=== PATIENT | male | born 1970 | race Caucasian/White ===

== ENCOUNTER 2016-02-09 04:20 | Emergency (ER) | payer SELFPAY ==
[2016-02-09 04:30] VITALS: TEMP 98.6
--- NOTE | 2016-02-09 04:57 | EDPHY ---
H & P Stated Complaint: right thumb laceration Source: Patient - Personal History Current Tetanus Diphtheria and Acellular Pertussis (TDAP): Yes - Medical/Surgical History Hx Asthma: Yes Hx Chronic Respiratory Disease: No Hx Diabetes: Yes Hx Cardiac Disease: No Hx Renal Disease: No Hx Cirrhosis: No Hx Alcoholism: No Hx HIV/AIDS: No Hx Splenectomy or Spleen Trauma: No Other PMH: type 2 diabetic, asthma, arthritis - Social History Smoking Status: Former smoker HPI/ROS: HPI CHIEF COMPLAINT: Right thumb laceration HISTORY OF PRESENT ILLNESS: This patient very pleasant 45-year-old male denies any significant medical history or surgical history, does not take any daily medications he presents to the emergency room with a right thumb laceration. 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 The laceration involves the tip of his right thumb 3 cm. it does involve the nail. No nail bed involvement. He is right-hand dominant, he is neurovascular intact no other injuries. Past Medical History: No significant medical history Past Surgical History: No significant surgical Social History: Denies daily use of drugs alcohol tobacco products Family History: noncontributory ROS REVIEW OF SYSTEMS: A comprehensive 10 point review of systems is otherwise negative aside from elements mentioned in the history of present illness. Exam Constitutional triage nursing summary reviewed, vital signs reviewed, awake/ alert. Eyes normal conjunctivae and sclera, EOMI, PERRLA. HENT normal inspection, atraumatic, moist mucus membranes, no epistaxis, neck supple/ no meningismus, no raccoon eyes. Respiratory clear to auscultation bilaterally, normal breath sounds, no respiratory distress, no wheezing. Cardiovascular rate normal, regular rhythm, no murmur, no edema, distal pulses normal. Gastrointestinal soft, non-tender, no rebound, no guarding, normal bowel sounds, no distension, no pulsatile mass. Genitourinary no CVA tenderness. Musculoskeletal right hand: Right thumb: Distal aspect laceration present 3-4 cm that involves the distal tuft of the right thumb, and now no midline vertebral tenderness, full range of motion, no calf swelling, no tenderness of extremities, no meningismus, good pulses, neurovascularly intact. Skin pink, warm, & dry, no rash, skin atraumatic. Neurologic awake, alert and oriented x 3, AAOx3, moves all 4 extremities equally, motor intact, sensory intact, CN II-XII intact, normal cerebellar, normal vision, normal speech. Psychiatric normal mood/affect. Heme/Lymph/Immune no lymphadenopathy. Differential Diagnosis: Includes but is not limited to in a particular, right thumb laceration, bony injury, wound injury Medical Decision Making: This patient had a thumb x-ray, he will need a digital block, and he will need his thumb repaired. Re-evaluation: ED x-ray right thumb: avulsion fracture of the distal tuft of the thumb. Image interpreted myself. [id number]: Patient signed over to Dr. Montero at 7:00 a.m. shift change. (Jamar Carmen) Constitutional: Initial Vital Signs Temperature (C) 37 C 02/09/16 04:27 Heart Rate 100 02/09/16 04:27 Respiratory Rate 20 02/09/16 04:27 Blood Pressure 160/91 H 02/09/16 04:27 O2 Sat (%) 98 02/09/16 04:27 O2 Delivery Mode Room Air Allergies/Adverse Reactions: codeine Allergy (Verified 02/09/16 04:27) morphine Allergy (Verified 02/09/16 04:27) Home Medications: Medication Instructions Recorded Cephalexin [Keflex] 500 mg PO Q6H #28 cap 02/09/16 Medical Decision Making Procedures: Procedure: Laceration repair. The 1 cm laceration on the tip of the right thumb was anesthetized using digital block with Marcaine without epinephrine The wound was cleaned and irrigated per nursing and tech documentation. Laceration was then draped and explored. Laceration extends to the nail. Tip of the bone is visible in the base of the laceration. The wound was repaired with simple interrupted 5 O Prolene. Nail was left in place. The wound repair was simple. The procedure was performed by myself. Patient is aware the laceration will have a scar. (Samaria Montero) Differential Diagnosis: Differential diagnosis for the patient's injury was considered including but not limited to contusion, abrasion, laceration, fracture, open fracture, or dislocation. (Samaria Montero) - Data Points Medications Given: Discontinued Medications Cephalexin (Keflex 500 Mg Prepack#4) 1 btl TAKEHOME EDNOW ONE PRN Reason: Protocol Stop: 02/09/16 08:23 Last Admin: 02/09/16 08:27 Dose: 1 btl Departure - Departure Disposition: Home, Routine, Self-Care Clinical Impression: Laceration Condition: Good Instructions: Cephalexin (By mouth), Care For Your Stitches (ED), Laceration ( ED) Additional Instructions: Keep wound clean and dry. Clean suture line with a mixture of hydrogen peroxide and water. Apply a thin layer of antibiotic cream. Dress wound if desired. Suture removal in 10 days. Watch for signs of infection. No soaking wound in water. Showers are ok. No swimming until sutures are removed. Use ibuprofen as directed for pain. You been given a prescription of Keflex. Please use this as directed to prevent infection. Return to emergency department if any concerns regarding infection. Referrals: NONE *PRIMARY CARE P,. [Primary Care Provider] - As per Instructions Eben Reynoso MD [Medical Doctor] - As per Instructions Prescriptions: Cephalexin [Keflex] 500 mg PO Q6H #28 cap
[2016-02-09] MEDS ORDERED: CEPHALEXIN 500MG PREPACK#4 BTL TAKEHOME ONE (08:22)
[2016-02-09 08:29] VITALS: BP 128/76; PULSE 68; RESP 16; O2SAT 97
--- NOTE | 2016-02-09 10:00 | DX ---
Right Thumb, 3 Views, at 5:09 a.m. Clinical History: 45-year-old male who sustained a laceration to the distal tip of the first digit. Comparison Study: None. Findings: There is an avulsion fracture off the distal tuft of the thumb distal phalanx, with some so ft tissue swelling. The MCP and IP joints are anatomically aligned. There are normal-appearing sesamo id bones. Impression: Avulsion fracture off of the distal tuft of the thumb distal phalanx.
== END 2016-02-09 08:29 | disposition home or self-care (01) ==
PROC: 0HQFXZZ Repair Right Hand Skin, External Approach (ICD-10-PCS; principal; 2016-02-09)
DX: S61.011A Laceration without foreign body of right thumb without damage to nail, initial encounter (principal); E11.9 Type 2 diabetes mellitus without complications; J45.909 Unspecified asthma, uncomplicated; Z87.891 Personal history of nicotine dependence; W29.0XXA Contact with powered kitchen appliance, initial encounter; Y92.69 Other specified industrial and construction area as the place of occurrence of the external cause; Y93.89 Activity, other specified